=== PATIENT | male | born 1955 | race Caucasian/White ===

== ENCOUNTER → 2018-08-18 | Outpatient (CLI) | payer OTHER ==
[~2018-08-18] MED LIST: GLUCOPHAGE500 MG PO; HYZAAR 50-12.51 EACH PO; LOVASTAT10 PO
== END ==
LOC: CAT 12:58
DX: Z13.6 Encounter for screening for cardiovascular disorders (principal); I25.10 Atherosclerotic heart disease of native coronary artery without angina pectoris; E78.00 Pure hypercholesterolemia, unspecified